=== PATIENT | male | born 1995 | race Caucasian/White ===

== ENCOUNTER 2017-05-07 21:48 | Emergency (ER) | payer OTHER ==
--- NOTE | 2017-05-07 22:10 | EDPHY ---
H & P Stated Complaint: c/o cough/fever/bodyaches beginning this am Time Seen by Provider: 05/07/17 22:01 HPI/ROS: CHIEF COMPLAINT: Cold symptoms HISTORY OF PRESENT ILLNESS: The patient is a 22 y/o male arriving with his friend complaining of cold symptoms onset this morning. He initially developed a frontal headache and then rhinorrhea, chills, cough, subjective fever, and myalgias. He's had some intermittent rib pain on the left side of his chest when he coughs. He denies nausea, vomiting, abdominal pain. He is normally healthy. REVIEW OF SYSTEMS: Constitutional:see HPI Eyes: No drainage ENT: No sore throat Respiratory: +cough, no shortness of breath Gastrointestinal: No nausea, no vomiting, no abdominal pain Genitourinary: no dysuria Skin: No rash Neurological: +headache, no weakness Psychiatric: No depression - Medical/Surgical History PMH: Denies Hx Asthma: No Hx Chronic Respiratory Disease: No Hx Diabetes: No Hx Cardiac Disease: No Hx Renal Disease: No Hx Cirrhosis: No Hx Alcoholism: No Hx HIV/AIDS: No Hx Splenectomy or Spleen Trauma: No Other PMH: none - Social History Smoking Status: Current some day smoker Additional Social History: Smoker. Friend at bedside. - Physical Exam Exam: General Appearance: Alert, [id number], no distress Eyes: Pupils equal and round, no conjunctival pallor or injection ENT, Mouth: Mucous membranes moist Neck: Normal inspection Respiratory: Lungs are clear to auscultation Cardiovascular: Regular rate and rhythm Gastrointestinal: Abdomen is soft and non- tender Neurological: A&O, nonfocal, normal gait Skin: Warm and dry, no rash Extremities: Nontender, no pedal edema Psychiatric: Mood and affect normal Constitutional: Initial Vital Signs Temperature (C) 38.1 C 05/07/17 21:52 Heart Rate 105 H 05/07/17 21:52 Respiratory Rate 18 05/07/17 21:52 Blood Pressure 124/69 H 05/07/17 21:52 O2 Sat (%) 99 05/07/17 21:52 O2 Delivery Mode Room Air Allergies/Adverse Reactions: No Known Allergies Allergy (Unverified 05/07/17 21:55) Home Medications: Medication Instructions Recorded Oseltamivir Phosphate [Tamiflu 75 75 mg PO BID #10 cap 05/07/17 mg (RX)] Medical Decision Making - Diagnostics Imaging Results: CXR: NAD Imaging: I viewed and interpreted images myself ED Course/Re-evaluation: This is a healthy 22 y/o male who presents with a 1-day history of upper respiratory symptoms. He is [id number] and has a normal respiratory exam. He is afebrile here. Plan for flu and strep swabs, 600mg PO ibuprofen, and chest x-ray to rule out pneumonia. Strep swab is negative. Chest x-ray is negative. Flu swab positive for influenza A. He will be discharged home with standard URI care and follow-up instructions. Return precautions discussed. He agrees with plan for discharge. Differential Diagnosis: Differential diagnosis includes but is not limited to pneumonia, otitis media, peritonsillar abscess, retropharyngeal abscess, meningitis. - Data Points Medications Given: Discontinued Medications Ibuprofen (Motrin) 600 mg PO EDNOW ONE Stop: 05/07/17 22:13 Last Admin: 05/07/17 22:19 Dose: 600 mg Departure - Departure Disposition: Home, Routine, Self-Care Clinical Impression: Influenza A Condition: Good Instructions: Influenza (ED) Additional Instructions: 1. Take 600mg ibuprofen every 6-8 hours for the next few days. 2. Increase fluid intake. 3. Follow up with your primary care provider for unimproved symptoms over the next 3-4 days. 4. Practice good hand hygiene while symptomatic as you are contagious. 5. Call back tomorrow for your flu swab results. Adult Pain & Fever Control: We recommend Acetaminophen (Tylenol) and Ibuprofen (Motrin,Advil) for pain and fever control. When fever is high or pain severe, both drugs can be used at the same time, but at different intervals. Please note the time differences. Your dose is: Acetaminophen 650mg every 4 to 6 hours Ibuprofen 600mg every 6-8 hours with food Note: do not take Acetaminophen with Hydrocodone (Vicodin, Lortab) or Oxycodone (Percocet). These medications also contain Acetaminophen. No more than 3000mg of Acetaminophen should be taken in 24 hours (for an adult). Referrals: NONE *PRIMARY CARE P,. [Primary Care Provider] - As per Instructions Stand Alone Forms: School Excuse Prescriptions: Oseltamivir Phosphate [Tamiflu 75 mg (RX)] 75 mg PO BID #10 cap Report Scribed for: Lena Houston Report Scribed by: Acacia Leo Date of Report: 05/07/17 Time of Report: 22:12 Physician Review and Approval Statement: 05/07/17 22:12 Portions of this note were transcribed by a medical assistant prn. I personally performed a history, physical exam, medical decision making, and confirmed accuracy of information the transcribed note.
[2017-05-07] MEDS ORDERED: IBUPROFEN 600 MG TAB PO ONE (22:12)
[2017-05-07 23:16] VITALS: BP 114/56; PULSE 95; RESP 16; TEMP 100; O2SAT 96
== END 2017-05-07 23:16 | disposition home or self-care (01) ==
DX: J10.1 Influenza due to other identified influenza virus with other respiratory manifestations (principal); F17.200 Nicotine dependence, unspecified, uncomplicated